=== PATIENT | male | born 1980 | race Caucasian/White ===

== ENCOUNTER 2017-10-05 10:22 | Emergency (ER) | payer BC, OTHER ==
[~2017-10-05] VITALS: Ht 162.6 cm; Wt 72.6 kg
--- NOTE | 2017-10-05 11:00 | NUR ---
BIB FAMILY, C/O BEE STINGS, N/V, NO SOB, SPEAKS IN FULL SENTENCE, NAD NOTED, VSS, RESP EVEN AND UNLABORED, SKIN WARM AND DRY. AT BS.
[2017-10-05] MEDS ORDERED: predniSONE 20 MG TABLET ONE (11:25)
[2017-10-05] MEDS ORDERED: diphenhydrAMINE HCL 50 MG/ML VIAL ONE (11:25)
[2017-10-05] MEDS ORDERED: FAMOTIDINE/PF INJ 20 MG/2 ML VIAL IV ONE ×2 (11:25→11:30)
[2017-10-05] MEDS ORDERED: diphenhydrAMINE HCL 50 MG/ML VIAL IV ONE (11:30)
[2017-10-05] MEDS ORDERED: IV NS 0.9% 1,000 ML BAG IV ONE ×2 (11:30→13:30)
[2017-10-05] MEDS ORDERED: predniSONE 10 MG TABLET PO ONE (11:30)
[2017-10-05 11:38] LABS: BASOPHILS # (AUTO) 0.1 /CMM (0.0-0.2); EOSINOPHILS % (AUTO) 0.1 % (0.0-6.0); HEMATOCRIT 50 % (39-51); HEMOGLOBIN 17.2 g/dL (13.5-17.5); LYMPHOCYTES # (AUTO) 0.6 /CMM (0.8-4.8); LYMPHOCYTES % (AUTO) 4.3 % (20.0-44.0); MEAN CORPUSCULAR HEMOGLOBIN 30 PG (26.0-33.0); MEAN CORPUSCULAR HGB CONC 35 g/dl (31.0-36.0); MEAN CORPUSCULAR VOLUME 88 fL (80-96); MONOCYTES # (AUTO) 0.6 /CMM (0.1-1.30); MONOCYTES % (AUTO) 4.6 % (2.0-12.0); NEUTROPHILS # (AUTO) 12.3 /CMM (1.8-8.9); PLATELET COUNT (AUTO) 274 /CMM (150-450); RDW COEFFICIENT OF VARIATION 11.8 (11.5-15.0); RED BLOOD CELL COUNT(AUTO) 5.65 MIL/uL (4.5-6.0); WHITE BLOOD COUNT (AUTO) 13.6 K/uL (4.3-11.0)
[2017-10-05 12:02] LABS: ALBUMIN 4.4 g/dL (3.4-5.0); BILIRUBIN,DIRECT 0.1 mg/dL (0.0-0.2); BILIRUBIN,TOTAL 0.9 mg/dL (0.2-1.0); CALCIUM, SERUM 9.4 mg/dL (8.5-10.1); CREATININE 1.3 mg/dL (0.6-1.3); POTASSIUM 4.3 mmol/L (3.5-5.1)
[2017-10-05] MEDS ORDERED: ACETAMINOPHEN ES 500 MG TABLET ONE (14:03)
[2017-10-05] MEDS ORDERED: ACETAMINOPHEN ES 500 MG TABLET PO ONE (14:30)
[2017-10-05 15:24] VITALS: BP 127/70
== END 2017-10-05 15:26 | disposition home or self-care (01) ==
LOC: ER 10:23
DX: T63.441A Toxic effect of venom of bees, accidental (unintentional), initial encounter (principal); R11.2 Nausea with vomiting, unspecified; R00.0 Tachycardia, unspecified; Y92.89 Other specified places as the place of occurrence of the external cause
CPT/HCPCS: 36415; 80048; 80076; 83690; 85025; 87804; 96361; 96374; 96375; 99284; A4606; J1200; J3490; J7030 ×2; J7512; Z7610; 87400